=== PATIENT | female | born 1945 | race Caucasian/White ===

== ENCOUNTER 2017-03-21 16:39 | Emergency (ER) | payer MEDICARE ==
--- NOTE | 2017-03-21 17:01 | Emergency Department Record ---
History of Present Illness - General Chief complaint: Hemorrhoids Stated complaint: Hemorrhoids Time Seen by Provider: 03/21/17 16:58 Source: Patient Mode of Arrival: Ambulatory Limitations: No limitations - History of Present Illness Initial comments: The patient is here due to rectal pain due to severe hemorrhoids. She states she has had a hx of severe hemorrhoids and they bleed off and on. For the last week she has had intermittent bleeding with BM's. Now the bleeding has improved but she is still having some pain but that is improving. She did see her PCP about it yesterday and was told to find a [employer]. The patient has had a hx of gastric bypass and a colostomy but denies any AP, nausea, vomiting, or fevers. MD complaint: Blood on toilet paper Onset/Timin -: Days(s) Consistency: Constant Improves with: None Worsens with: None Context: Hemorrhoids Treatments Prior to Arrival: None - Related Data Home Medications Medication Instructions Recorded Confirmed Last Taken Ferrous Sulfate 325 mg PO DAILY 06/03/15 03/21/17 03/21/17 Cholecalciferol (Vitamin D3) 2,000 unit PO DAILY 08/03/15 03/21/17 03/21/17 [Vitamin D3] Multivitamin [Multi-Vitamin Daily] 1 each PO DAILY 08/03/15 03/21/17 03/21/17 Pregabalin [Lyrica] 50 mg PO DAILY cap 05/23/16 03/21/17 03/21/17 Vitamin E Mixed [Vitamin E] 400 unit PO DAILY cap 09/06/16 03/21/17 03/21/17 Previous Rx's Medication Instructions Recorded Acetaminophen [Tylenol 325Mg] 650 mg PO Q4H PRN #0 tablet 05/14/16 Hydrocortisone/Pramoxine 10 gm RC BID #1 foam 03/21/17 [Proctofoam-Hc Foam] Allergies Allergy/AdvReac Type Severity Reaction Status Date / Time No Known Allergies Allergy none Verified 03/21/17 16:55 Travel Screening - Travel/Exposure Within Last 30 Days Have you traveled within the last 30 days?: No - Travel/Exposure Within Last Year Have you traveled outside the [place] in the last year?: No - Travel Symptoms Symptom Screening: None Review of Systems Constitutional: Denies: Chills, Fever Eyes: Denies: Eye discharge ENT: Denies: Congestion Respiratory: Denies: Cough, Dyspnea Past Medical History - SOCIAL HISTORY Smoking Status: Former smoker Alcohol Use: Rare Drug Use: None - RESPIRATORY Hx Respiratory Disorders: Yes Hx Bronchitis: Yes Hx COPD: Yes (uses albuterol nebulizer-good control) Hx Pneumonia: Yes - CARDIOVASCULAR Hx Cardio Disorders: Yes Hx Hypertension: Yes (meds good control) Hx Irregular Heartbeat: Yes - NEURO Hx Neuro Disorders: No Hx Headaches: Yes (occass) - GI Hx GI Disorders: Yes Hx Abdominal Pain: No Hx Diverticulitis: Yes (hx bowel perforation & sepsis) Hx GI Bleed: No Hx Reflux: Yes - Hx Genitourinary Disorders: Yes Hx Bladder Problem: Yes (leakage takes meds) - ENDOCRINE Hx Endocrine Disorders: Yes Hx Thyroid Disease: Yes - MUSCULOSKELETAL Hx Musculoskeletal Disorders: Yes Hx Arthritis: Yes Hx Back Injury: Yes - PSYCH Hx Psych Problems: Yes Hx Anxiety: Yes Hx Depression: Yes Comment:: Insomnia - HEMATOLOGY/ONCOLOGY Hx Hematology/Oncology Disorders: No Family Medical History Any Significant Family History?: No Family Hx Comment (NOT TO BE USED IN PLACE OF ITEMS BELOW): AAA-Brother Hx Cancer: Brother/Sister Hx Diabetes: Father, Mother, Grandparents Hx Heart Disease: Children *Heart Comment: Daughter has congential defect Physical Exam - General General Appearance: Alert, Oriented x3, Cooperative, No acute distress - Head Head exam: Atraumatic, Normocephalic, Normal inspection - Eye Eye exam: Normal appearance, PERRL - Respiratory Respiratory exam: Normal lung sounds bilaterally. negative: Respiratory distress - Cardiovascular Cardiovascular Exam: Regular rate, Normal rhythm, Normal heart sounds - GI/Abdominal GI/Abdominal exam: Soft, Normal bowel sounds. negative: Diminished bowel sounds , Distended, Guarding, Rebound, Rigid, Tenderness - Rectal Rectal exam: Hemorrhoids (The patient has very significant external hemorrhoids but no bleeding presently.) - Extremities Extremities exam: Normal inspection, Full ROM, Normal capillary refill. negative: Tenderness Course Vital Signs 03/21/17 16:45 Temperature 97.7 F Pulse Rate 85 Respiratory 18 Rate Blood Pressure 137/91 Pulse Ox 96 - Reevaluation(s) Reevaluation #1: The patient is doing well at this time. She is still having some discomfort due to the hemorrhoids but since she is driving I did instruct her to take her pain medicines when she gets at home. I did discuss the case with DR. Villa and he would like to see her in his clinic tomorrow morning and he will possibly schedule her for surgery for Saturday here at [facility]. The patient is to call for the appointment at 8am tomorrow to be seen in the morning tomorrow. 03/21/17 18:19 Medical Decision Making - Lab Data Result diagrams: 03/21/17 17:28 03/21/17 17:28 Disposition Disposition: Discharge Clinical Impression: Hemorrhoids Qualifiers: Hemorrhoid type: unspecified Qualified Code(s): K64.9 - Unspecified hemorrhoids Disposition: Home, Self-Care Condition: (1) Good Instructions: Hemorrhoids (ED) Additional Instructions: Please take your home pain medicines and use the Proctofoam as directed. Please see Dr. Villa tomorrow morning in his Clinic. Call at 8am for the appointment. Please return to the ER for any problems, AP, bleeding or fevers. Prescriptions: Hydrocortisone/Pramoxine [Proctofoam-Hc Foam] 10 gm RC BID #1 foam Forms: Patient Portal Access Time of Disposition: 18:23
[2017-03-21 17:35] LABS: BASO % 0.2 % (0-6); EOS % 2.4 % (0-6); GRAN % 68.6 % (47-80); HEMATOCRIT 38.1 % (35.0-47.0); HEMOGLOBIN 12.2 gm/dl (11.6-16.0); LYMPH % 20.7 % (16-45); MEAN CELL VOLUME 91.4 fl (81-97); MEAN CORPUSCULAR HEMOGLOBIN 29.3 pg (27-33); MEAN PLATELET VOLUME 9.6 fl (7.4-10.4); MONO % 8.1 % (0-9); PLATELET COUNT 143 K/uL (130-400); RED BLOOD COUNT 4.17 M/uL (3.80-5.40); RED CELL DISTRIBUTION WIDTH 14.1 % (11.5-14.5); WHITE BLOOD COUNT W/O DIFF 5.9 K/uL (4.2-12.2)
[2017-03-21 17:47] LABS: ANION GAP 11.6 (7-16); BLOOD UREA NITROGEN 7 mg/dL (7-17); CARBON DIOXIDE 25.4 mmol/L (22-30); CREATININE 0.7 mg/dL (0.52-1.04); EST GLOMERULAR FILTRATION RATE > 60 ml/min; GLUCOSE,RANDOM 77 mg/dL (70-110)
[2017-03-21 17:49] LABS: INR 1.05; PARTIAL THROMBOPLASTIN TIME 28.5 SECONDS (24.5-39.1); PROTHROMBIN TIME (PATIENT) 11.9 SECONDS (9.5-12.1)
== END 2017-03-21 18:31 | disposition home or self-care (01) ==
LOC: ER 16:39
DX: K64.8 Other hemorrhoids (principal)
CPT/HCPCS: 80048; 85025; 85610; 85730; 99283

== ENCOUNTER 2017-03-25 10:34 | Day surgery (SDC) | payer MEDICARE ==
[~2017-03-25 10:34] MED LIST: ACETAMINOPHEN 1000MG/100 ML PREMIX IV ONE
[2017-03-25] MEDS ORDERED: HYDROCODONE/APAP 5/325MG TABLET PO ONE (14:00)
[2017-03-25] MEDS ORDERED: GELATIN SPONGE,ABSORBABLE 1 EACH SPONGE TP ONE (14:00)
[2017-03-25] MEDS ORDERED: PROPOFOL 10 MG/ML VIAL IV ONE (14:00)
[2017-03-25] MEDS ORDERED: BUPIVACAINE 0.25% W/EPI MPF 30ML VIAL IVP ONE (14:00)
[2017-03-25] MEDS ORDERED: FENTANYL PF 100MCG/2ML VIAL IV ONE (14:00)
[2017-03-25] MEDS ORDERED: DIBUCAINE 30 GM TUBE TOP ONE (14:00)
[2017-03-25] MEDS ORDERED: MIDAZOLAM HCL 2MG/2ML VIAL IV ONE (14:00)
--- NOTE | 2017-03-26 15:33 | Operative Note ---
DATE OF SURGERY: 03/25/2017 REFERRING: Karla Julio NP. PREOPERATIVE DIAGNOSIS: Grade 4 prolapsed thrombosed hemorrhoids. POSTOPERATIVE DIAGNOSIS: Grade 4 prolapsed thrombosed hemorrhoids. OPERATION: Internal and external hemorrhoidectomy. Surgeon: Gerber Villa D.O. Indication: The patient is a 71-year-old female who saw us in the clinic last week, who had ongoing perianal discomfort. On exam, she had grade 4 hemorrhoids. We did discuss hemorrhoidectomy, risks, benefits and alternatives. Risks included bleeding, infection, acute chronic pain, postop anal stricture and she understood this full. Consent was signed and questions. PROCEDURE: She was taken to the Operating Room and placed in the supine position. Preoperative saddle block was done per Department of Anesthesia. Sedation was given. She was rotated in the lithotomy position. Her perianal region was prepped and draped in the usual fashion. At this time the hemorrhoids were injected with about 15 mL of lidocaine with epinephrine. Pressure was placed and these did reduce in size. Using an Nicholas Harmonic, the 3 main complexes were each ligated taking it right off the internal sphincter complex. Hemostasis was noted. She had a few other smaller complexes which I elected to leave due to the fact that I did not want to create a stricture. The patient did tolerate the procedure well. Her rectum was packed with Gelfoam and dibucaine ointment. She was taken to Recovery Room in satisfactory condition. CC: Karla Julio NP [facility]
== END 2017-03-25 16:00 | disposition home or self-care (01) ==
LOC: SUR 10:34
PROVIDERS: ATTEND Surgery
DX: K64.3 Fourth degree hemorrhoids (principal); J44.9 Chronic obstructive pulmonary disease, unspecified; E03.9 Hypothyroidism, unspecified
CPT/HCPCS: 46255; 00902; 93005; 93010; J3010